=== PATIENT | male | born 1975 | race Hispanic/Latino ===

== ENCOUNTER 2023-05-02 08:20 | Emergency (ER) | payer BC ==
[~2023-05-02] VITALS: Ht 180.3 cm; Wt 90.7 kg
[2023-05-02] MEDS ORDERED: TETANUS/DIPHTHERIA TOXOID [ADULT] 0.5 ML VIAL IM ONE (08:30)
[2023-05-02] MEDS ORDERED: LIDOCAINE HCL 1% 20 ML VIAL ONE (08:44)
[2023-05-02] MEDS ORDERED: ONDANSETRON ODT 4MG TAB ONE (08:56)
[2023-05-02] MEDS ORDERED: HYDROCODONE/ACETAMINOPHEN 5/325 MG TAB ONE (08:57)
[2023-05-02] MEDS ORDERED: HYDROCODONE/ACETAMINOPHEN 5/325 MG TAB PO ONE (09:00)
[2023-05-02] MEDS ORDERED: LIDOCAINE HCL 1% 20 ML VIAL INJ ONE (09:00)
[2023-05-02] MEDS ORDERED: ONDANSETRON ODT 4MG TAB SL ONE (09:00)
[2023-05-02] MEDS ORDERED: BACITRACIN 1 EACH PACKET TP ONE ×2 (09:53→10:00)
[2023-05-02 10:00] VITALS: BP 133/87; PULSE 70; RESP 18; O2SAT 99
[2023-05-02] MEDS ORDERED: IBUP-2070 PO (10:25)
[2023-05-02] MEDS ORDERED: MUPI22O TP (10:25)
== END 2023-05-02 10:38 | disposition home or self-care (01) ==
LOC: EDH 08:20
DX: S61.212A Laceration without foreign body of right middle finger without damage to nail, initial encounter (principal); E78.00 Pure hypercholesterolemia, unspecified; I10 Essential (primary) hypertension; X58.XXXA Exposure to other specified factors, initial encounter; Y93.89 Activity, other specified; Y92.89 Other specified places as the place of occurrence of the external cause; Y99.8 Other external cause status
CPT/HCPCS: 12002; 73120; 90471; 90714